=== PATIENT | male | born 1970 | race Caucasian/White ===

== ENCOUNTER 2022-02-11 07:28 | Emergency (ER) | payer OTHER, SELFPAY ==
[2022-02-11 07:45] VITALS: BP 147/82; PULSE 69; RESP 20; TEMP 36.4; O2SAT 98; BMI 40.9
--- NOTE | 2022-02-11 08:01 | ED.GENADULT ---
HPI - General Adult General Time Seen by Provider: 08:01 Date Seen: 02/11/22 Chief complaint: Back Injury/Pain Stated complaint: Lower back pain Time Seen by Provider: 02/11/22 08:01 Source: patient and RN notes reviewed Mode of arrival: ambulatory Limitations: no limitations History of Present Illness HPI narrative: Patient is a 51-year-old male coming in with acute on chronic back pain. He went to his doctor yesterday, was started on ibuprofen and lidocaine patches. In 2013 patient relays that he had symptoms of a pinched nerve in his back and ended up having to have surgery. This is reminiscent of that. He has pain going all across his low back and then has pain going down into the left leg. There has been no true trauma but on report it was exacerbated when he missed a wrong coming down a ladder a few weeks ago and came down on the ground. He did not fall but he reportedly tweaked his back at that point. There has been no fevers or chills. Does have some complaints of tingling in the left leg and maybe feels it a little in the left testicle. Has had no bowel or bladder control. No weakness per se. His pain has not improved overnight and actually feels worse. Sounds as if the pain radiates maybe down to the knee area. His position of comfort is lying flat on his back with his knees bent. Related Data Home Medications Medication Instructions Recorded Confirmed atorvastatin 40 mg tablet mg 02/11/22 cyclobenzaprine 10 mg tablet mg 02/11/22 duloxetine 40 mg capsule,delayed mg PO 02/11/22 release empagliflozin 10 mg tablet mg 02/11/22 (Jardiance) ibuprofen 800 mg tablet mg 02/11/22 lidocaine 5 % topical patch patch 02/11/22 lisinopril 30 mg tablet mg 02/11/22 metformin 1,000 mg tablet mg 02/11/22 morphine 30 mg tablet,extended mg PO 02/11/22 release pantoprazole 20 mg tablet,delayed mg PO 02/11/22 release sildenafil (pulm.hypertension) 20 mg 02/11/22 mg tablet Previous Rx's Medication Instructions Recorded diazepam 5 mg tablet (Valium) 5 mg PO QHS PRN #5 tabs 02/11/22 prednisone 20 mg tablet 20 mg PO BID #10 tabs 02/11/22 Allergies Allergy/AdvReac Type Severity Reaction Status Date / Time No Known Drug Allergies Allergy Verified 02/11/22 07:43 Review of Systems Status of ROS: Reports: 6 or more systems reviewed and unremarkable except as noted in History and below Exam Const: Vital Signs, click to edit/add: Vital Signs - 24 hr 02/11/22 07:45 Temperature 97.5 F L Pulse Rate [Left P ulse Oximeter] 69 Respiratory Rate 20 Blood Pressure [Ri ght Upper Arm] 147/82 H Pulse Oximetry 98 Oxygen Delivery Me thod Room Air Documenting provider has reviewed patient's vital signs: yes Common normals: oriented x3 and alert General appearance: cooperative Other: Patient keeps his eyes closed during the interaction. Seems uncomfortable with position changes. Has a definite positive straight leg raise on the left. Cannot get DTRs. Strength is 5/5 and symmetric throughout both lower extremities all the way down to the toes with the extensor and plantar flexion mechanisms. He has normal light touch sensation including in the perineum. No evidence of any saddle anesthesia. Normal light touch sensation throughout both extremities. Good warmth and normal coloration to both extremities. He is visibly uncomfortable with manipulation of his lower extremities but definitely mobilizing the left leg increases his back pain. Abdomen is soft nontender nondistended no masses. CV regular rate and rhythm no murmur normal S1 and S2. Neuro: Common normals: oriented x3 Sensorium/orientation: alert Course Course Hospital Course: Reviewed with them that I do think he probably needs an updated MRI but does not needed emergently. This is something that they should contact his primary care provider. He has no warning findings on his examination that would require an emergent MRI. Discussed options as for pain management and medication management. Will give him 30 mg IM Toradol and 125 mg IM Solu-Medrol. We will start prednisone. He does use Flexeril baseline. I will prescribe him a few pills of Valium which is a more potent muscle relaxer. He already has morphine for narcotic pain management. We need the anti-inflammatory of the steroids to see if that will help. I have asked them to contact his clinic to put a message into his primary care provider to consider ordering a lumbar MRI. Patient goes to [facility]. Vital Signs Vital signs: Initial Vital Signs Temperature 97.5 F L 02/11/22 07:45 Temperature Source Temporal Artery Scan 02/11/22 07:45 Pulse Rate 69 02/11/22 07:45 Respiratory Rate 20 02/11/22 07:45 Blood Pressure 147/82 H 02/11/22 07:45 Blood Pressure Mean 103 02/11/22 07:45 Blood Pressure Position Sitting 02/11/22 07:45 Pulse Oximetry 98 02/11/22 07:45 Oxygen Delivery Method 02/11/22 07:45 Vital Signs Temperature 97.5 F L 02/11/22 07:45 Pulse Rate 69 02/11/22 07:45 Respiratory Rate 20 02/11/22 07:45 Blood Pressure 147/82 H 02/11/22 07:45 Pulse Oximetry 98 02/11/22 07:45 Oxygen Delivery Method 02/11/22 07:45 Temperature 97.5 F L 02/11/22 07:45 Pulse Rate 69 02/11/22 07:45 Respiratory Rate 20 02/11/22 07:45 Blood Pressure 147/82 H 02/11/22 07:45 Pulse Oximetry 98 02/11/22 07:45 Oxygen Delivery Method 02/11/22 07:45 Critical Care Time Critical Care Time Critical Care Time: No Discharge Plan Discharge Clinical Impression: Acute left lumbar radiculopathy, Chronic low back pain Condition: Stable Instructions: Lumbar Radiculopathy (ED), Back Pain (ED) Additional Instructions: Start prednisone this evening and take as prescribed, take with food to protect her stomach. Can continue with Tylenol 1000 mg 3 times a day baseline for pain, use your morphine that you have for your chronic pain. You can supplement with ibuprofen per bottle directions as needed for extra pain management. Do recommend continuing with the lidocaine patches. Talk to your primary care provider about consideration for updating a lumbar MRI and getting a referral to physical therapy. Review handouts, if there is any concern about any changes listed for concern, please seek re-evaluation. I have prescribed a few tablets of Valium to be used at bedtime, this is 1 of the most potent muscle relaxants but can be addictive. Activity Level: Activity as Tolerated Prescriptions: New diazepam [Valium] 5 mg tablet 5 mg PO QHS PRNQty: 5 0RF prednisone 20 mg tablet 20 mg PO BID Qty: 10 0RF No Action cyclobenzaprine 10 mg tablet Label Comments: TAKE 1 TABLET BY MOUTH THREE TIMES DAILY atorvastatin 40 mg tablet ibuprofen 800 mg tablet Label Comments: TAKE 1 TABLET BY MOUTH THREE TIMES DAILY NEEDED morphine 30 mg tablet extended release PO Label Comments: TAKE 1 TABLET BY MOUTH EVERY 24 HOURS pantoprazole 20 mg tablet,delayed release (DR/EC) PO Label Comments: TAKE 1 TABLET BY MOUTH ONCE DAILY metformin 1,000 mg tablet Label Comments: TAKE 1 TABLET BY MOUTH TWICE DAILY WITH MEALS lidocaine 5 % adhesive patch,medicated lisinopril 30 mg tablet Label Comments: TAKE 1 TABLET BY MOUTH ONCE DAILY sildenafil (pulm.hypertension) 20 mg tablet Label Comments: TAKE 5 TABLETS BY MOUTH ONCE DAILY NEEDED Jardiance 10 mg tablet Label Comments: TAKE 1 TABLET BY MOUTH ONCE DAILY duloxetine 40 mg capsule,delayed release(DR/EC) PO Label Comments: TAKE 1 CAPSULE BY MOUTH ONCE DAILY Stand Alone Forms: [facility] Inst[facility]
[2022-02-11] MEDS: KETOROLAC 30 MG/ML inj IM (08:36)
[2022-02-11] MEDS: METHYLPREDNISOLONE SOD SUCC 62.5 MG/ML (125) 125 MG IM (08:36)
== END 2022-02-11 08:49 | disposition home or self-care (01) ==
LOC: ED 08:25
PROVIDERS: Emergency Provider Family Medicine
DX: M54.16 Radiculopathy, lumbar region (principal); G89.29 Other chronic pain; M54.50 Low back pain, unspecified
CPT/HCPCS: 96372; 99283; J1885; J2930